=== PATIENT | female | born 1950 | race Caucasian/White ===

== ENCOUNTER → 2023-08-16 09:20 | Outpatient (REF) | payer MEDICARE, SELFPAY ==
[2023-08-16 13:56] LABS: tTG IgA Antibody 4.1 EU/ml (0-19); tTG IgG Antibody 9.9 EU/ml (0-19)
[2023-08-16 23:58] LABS: IgA 141 mg/dl (70-400)
[2023-08-19 03:16] LABS: Endomysial IgA Antibody Titer <1:10 (<1:10)
== END ==
LOC: REG 09:20
PROVIDERS: ATTENDING PHYSICIAN Colon & Rectal Surgery; FAMILY PHYSICIAN Internal Medicine
DX: R19.7 Diarrhea, unspecified (principal); R10.84 Generalized abdominal pain
CPT/HCPCS: 36415; 82784; 83516; 86231

== ENCOUNTER → 2023-09-07 11:01 | Outpatient (REF) | payer MEDICARE, SELFPAY ==
[2023-09-07 12:12] LABS: % Basophils 0.6 % (0-2); % Eosinophils 1.5 % (0-6); % Immature Granulocytes 0.1 % (0-0.5); % Lymphocytes 38.4 % (20.5-51.1); % Monocytes 8.6 % (1.7-9.3); % Neutrophils 50.8 % (42.2-75.2); Absolute Eosinophils 0.1 10^3/uL (0-0.7); Absolute Lymphocytes 2.6 10^3/uL (1.2-3.4); Absolute Monocytes 0.6 10^3/uL (0.1-0.6); Absolute Neutrophils 3.5 10^3/uL (1.4-6.5); Hematocrit 39.7 % (37.0-47.0); Hemoglobin 12.7 g/dL (12.0-16.0); Mean Corpuscular Hgb 30.7 pg (27.0-31.0); Mean Corpuscular Volume 95.9 fL (81.0-99.0); Mean Platelet Volume 10.4 fL (7.4-10.4); Nucleated Red Blood Cells % 0 %; Platelet Count 235 10^3/uL (130-400); Red Blood Cell Count 4.14 10^6/uL (4.20-5.40); Red Cell Dist. Width 13.4 % (11.5-14.5); White Blood Cell Count 6.9 10^3/uL (4.8-10.8)
[2023-09-07 12:42] LABS: ALT (SGPT) 21 U/L (0-35); AST (SGOT) 32 U/L (14-36); Albumin 4.4 g/dl (3.5-5.0); Alkaline Phosphatase 67 U/L (38-126); Blood Urea Nitrogen 17 mg/dl (7-17); Calcium 9.5 mg/dl (8.4-10.2); Carbon Dioxide 28 mmol/L (22-30); Chloride 104 mmol/L (98-107); Glucose 88 mg/dl (70-99); HDL Cholesterol 98 mg/dl; LDL Cholesterol, Calculated 81 mg/dl; Potassium 4.3 mmol/L (3.5-5.1); Sodium 137 mmol/L (135-145); Total Bilirubin 0.7 mg/dl (0.2-1.3); Total Cholesterol 192 mg/dl (50-199); Total Protein 7.2 g/dl (6.3-8.2); Triglyceride 67 mg/dl (10-149); Very Low Density Lipoprotein 13 mg/dl (0-30); eGFR > 60.00
[2023-09-07 13:19] LABS: TSH 0.79 uIU/ml (0.47-4.68)
== END ==
LOC: REG 11:01
PROVIDERS: ATTENDING PHYSICIAN Internal Medicine
DX: M81.0 Age-related osteoporosis without current pathological fracture (principal); E03.9 Hypothyroidism, unspecified; Z68.20 Body mass index [BMI] 20.0-20.9, adult; F13.20 Sedative, hypnotic or anxiolytic dependence, uncomplicated; E78.00 Pure hypercholesterolemia, unspecified
CPT/HCPCS: 36415; 80053; 80061; 84443; 85025

== ENCOUNTER → 2024-04-04 08:06 | Outpatient (REF) | payer MEDICARE, SELFPAY | LOC: RCS 08:06 | PROVIDERS: ATTENDING PHYSICIAN Internal Medicine Cardiovascular Disease; FAMILY PHYSICIAN Internal Medicine | DX: I44.7 Left bundle-branch block, unspecified (principal) | CPT/HCPCS: 93306 ==

== ENCOUNTER → 2024-09-19 11:41 | Outpatient (REF) | payer MEDICARE, SELFPAY ==
[2024-09-19 12:13] LABS: % Basophils 0.8 % (0-2); % Eosinophils 1.3 % (0-6); % Immature Granulocytes 0.3 % (0-0.5); % Lymphocytes 37.2 % (20.5-51.1); % Monocytes 9.2 % (1.7-9.3); % Neutrophils 51.2 % (42.2-75.2); Absolute Basophils 0.1 10^3/uL (0-0.2); Absolute Eosinophils 0.1 10^3/uL (0-0.7); Absolute Lymphocytes 2.8 10^3/uL (1.2-3.4); Absolute Monocytes 0.7 10^3/uL (0.1-0.6); Absolute Neutrophils 3.9 10^3/uL (1.4-6.5); Hematocrit 39.5 % (37.0-47.0); Mean Corp Hgb Conc. 32.9 g/dL (33.0-37.0); Mean Corpuscular Hgb 31.4 pg (27.0-31.0); Mean Corpuscular Volume 95.4 fL (81.0-99.0); Mean Platelet Volume 10.1 fL (7.4-10.4); Nucleated Red Blood Cells % 0 %; Platelet Count 226 10^3/uL (130-400); Red Blood Cell Count 4.14 10^6/uL (4.20-5.40); Red Cell Dist. Width 13.3 % (11.5-14.5); White Blood Cell Count 7.6 10^3/uL (4.8-10.8)
[2024-09-19 13:16] LABS: ALT (SGPT) 22 U/L (0-35); AST (SGOT) 30 U/L (14-36); Albumin 4.6 g/dl (3.5-5.0); Alkaline Phosphatase 62 U/L (38-126); Blood Urea Nitrogen 27 mg/dl (7-17); Calcium 9.5 mg/dl (8.4-10.2); Carbon Dioxide 28 mmol/L (22-30); Chloride 104 mmol/L (98-107); Glucose 84 mg/dl (70-99); HDL Cholesterol 90 mg/dl; LDL Cholesterol, Calculated 93 mg/dl; Potassium 4.4 mmol/L (3.5-5.1); Sodium 141 mmol/L (135-145); Total Bilirubin 0.8 mg/dl (0.2-1.3); Total Cholesterol 195 mg/dl (50-199); Total Protein 7.1 g/dl (6.3-8.2); Triglyceride 62 mg/dl (10-149); Very Low Density Lipoprotein 12 mg/dl (0-30); eGFR > 60.00
[2024-09-19 13:43] LABS: TSH Reflex To Free T4 0.45 uIU/ml (0.47-4.68)
== END ==
LOC: REG 11:41
PROVIDERS: ATTENDING PHYSICIAN Internal Medicine
DX: E03.9 Hypothyroidism, unspecified (principal); M85.80 Other specified disorders of bone density and structure, unspecified site; I44.7 Left bundle-branch block, unspecified; Z79.899 Other long term (current) drug therapy; E78.00 Pure hypercholesterolemia, unspecified; I10 Essential (primary) hypertension
CPT/HCPCS: 36415; 80053; 80061; 84439; 84443; 85025